=== PATIENT | female | born 1995 | race Caucasian/White ===

== ENCOUNTER 2024-06-13 12:57 | Outpatient (AMB) | payer OTHER, SELFPAY ==
--- NOTE | 2024-06-13 13:06 | A.OFFVIS_ITS ---
Vital Signs 06/13/24 13:07 Height 5 ft 3 in Weight 138 lb 3.677 oz BMI 24.5 BP 100/82 Blood Pressure Location Lt brachial Position Sitting Pulse 98 Pulse Source Pulse Oximeter Intake Visit Reasons: Lupus///RECORDS RECEIVED Intake Note: Patient present today for Lupus. Installation And Repair Technician Required: No Accompanied by: Self / Same As Patient Allergies No Known Allergies Allergy (Verified 06/13/24 13:11) HPI Comments Details: acute back pain after going to the [employer] No recent flares No joint swelling or pain. Sometimes has morning stiffness but it is minimal. No new rash, oral ulcers, genital ulcers, raynaud's syndrome, urinary symptoms, fevers or recent infections. Last benlysta infusion May 21. Due . PFSH Family History (Updated 06/13/24 @ 13:14 by JODY Sher) Mother No problems noted. Father Asthma Social History (Updated 06/13/24 @ 13:14 by JODY Sher) Alcohol intake: current Alcohol intake frequency: holidays/special occasions only Patient Tobacco Use Status: Never used Tobacco Review of Systems Const All systems reviewed & are unremarkable except as noted in HPI and below Physical Exam Vital Signs: Last Vital Signs Pulse 98 06/13/24 13:07 BP 100/82 06/13/24 13:07 BMI result Body Mass Index 24.5 Const General: healthy appearing and comfortable Resp Auscultation: clear to auscultation bilaterally Cardio Rate: regular rate Rhythm: regular rhythm Heart sounds: S1 normal heart sound present and S2 normal heart sound present Skin General skin exam: no rashes or lesions noted Extrem Other: No tender joints or synovitis. Normal ROM of all joints. Assessment & Plan Assessment & Plan (1) Systemic lupus erythematosus: Comment: Controlled on current regimen. Code(s): M32.9 - Systemic lupus erythematosus, unspecified Category: Medical Plan: Need to schedule Benlysta infusion Jun 18. Continue HCQ 400mg qd Continue MTX 20mg once weekly Obtain labs for disease and drug monitoring from last month. She will need labs in 2 months 1 week prior to requiring refill. Labs ordered. After labs are reviewed ok to send 3 month supply of HCQ and MTX. Requesting last eye exam for HCQ surveillance with OCT and VF testing. (2) Other care home (current) drug therapy: Code(s): Z79.899 - Other care home (current) drug therapy Category: Medical Plan: See above. Orders: Orders Alanine Aminotransferase 2 Months M32.9 - Systemic lupus erythematosus, unspecified Anti DNA DS Antibody 2 Months M32.9 - Systemic lupus erythematosus, unspecified Aspartate Amino Transferase 2 Months M32.9 - Systemic lupus erythematosus, unspecified C Reactive Protein 2 Months M32.9 - Systemic lupus erythematosus, unspecified Complement C3 2 Months M32.9 - Systemic lupus erythematosus, unspecified Erythrocyte Sedimentation Rate 2 Months M32.9 - Systemic lupus erythematosus, unspecified Protein Creatinine Ratio, Ur 2 Months M32.9 - Systemic lupus erythematosus, unspecified Complement C4 2 Months M32.9 - Systemic lupus erythematosus, unspecified Complete Blood Count Auto Diff 2 Months M32.9 - Systemic lupus erythematosus, unspecified Creatinine 2 Months M32.9 - Systemic lupus erythematosus, unspecified UA w Microscopic 2 Months M32.9 - Systemic lupus erythematosus, unspecified Medications: New belimumab (Benlysta) administer over 60 mins 627 mg IV Q4W M32.9 - Systemic lupus erythematosus, unspecified Coding Level of Care Code Est Pt Level 4 (41769) Complex EM visit Add On G2211 Diagnoses Systemic lupus erythematosus M32.9 Other termite control technician (current) drug therapy Z79.899
[2024-06-13 13:07] VITALS: BP 100/82; PULSE 98; BMI 24.5
== END 2024-06-13 13:55 | disposition home or self-care (01) ==
PROVIDERS: Visit Provider Internal Medicine Rheumatology
DX: M32.9 Systemic lupus erythematosus, unspecified (principal); Z79.899 Other long term (current) drug therapy
CPT/HCPCS: 99214

== ENCOUNTER → 2024-06-13 12:57 | Outpatient (BNVA) | payer OTHER, SELFPAY | PROVIDERS: Visit Provider Internal Medicine Rheumatology ==

== ENCOUNTER 2024-09-13 09:16 | Outpatient (REF) | payer OTHER, SELFPAY ==
--- OUTSIDE RECORDS SUMMARY | 2024-09-13 10:50 | XMS_ITS | Clinical Summary ---
Author Organization [facility] Address [address] [place] [address] Phone Care Team Providers Care Sheriff Name Role Phone Gurdeep Martinez MD Primary Care Provider + [phone] Allergies Active Allergy Reactions Criticality Noted Date [...] History of SARS-CoV-2 08/12/2020 Overview (03/03/2022): 07/28/21 [facility] Bilateral plantar wart 04/15/2020 Verruca vulgaris [...] patient's age to complete this topic Insurance [facility] Care Teams Sheriff Relationship Specialty Start Date End Date Gurdeep Martinez MD PCP - General 08/11/20
[2024-09-13 17:36] LABS: MANUAL DIFF FLAG NO
[2024-09-13 17:42] LABS: Basophils Percent Auto 0.2 % (0-2); Eosinophils Percent Auto 0.3 % (0-4); Hematocrit 42.7 % (37.0-47.0); Hemoglobin 13.8 g/dl (12.0-16.0); Imm Gran Abs Auto 0.02 X10*3/uL (0.00-0.03); Imm Gran Pct Auto 0.3 % (0.0-0.4); Lymphocytes Absolute Auto 1.5 X10*3/uL (1.2-4.9); Mean Corpuscular HGB Conc 32.3 g/dl (31.0-35.0); Mean Corpuscular Hemoglobin 28.2 pg (27.0-33.0); Mean Corpuscular Volume 87.3 fL (80.0-98.0); Mean Platelet Volume 11.6 fL (9.4-12.3); Monocytes Absolute Auto 0.5 X10*3/uL (0.1-1.2); Monocytes Percent Auto 7.4 % (2-11); Neutrophils Absolute Auto 4.2 x10*3/uL (2.0-8.3); Neutrophils Percent Auto 67.8 % (45-73); Platelet Count 333 X10*3/uL (160-400); Red Blood Count 4.89 X10*6/uL (4.20-5.50); Red Cell Distribution Width 14.6 % (11.0-16.0); White Blood Count 6.2 X10*3/uL (4.8-10.8)
[2024-09-13 18:01] LABS: Creatinine Urine 245.08 mg/dL; Protein/Creatinine Ratio, Ur 0.51 (<0.2); Total Protein Urine Random 125 mg/dL (<12)
[2024-09-13 18:02] LABS: Alanine Aminotransferase 15 U/L (0-31); Aspartate Amino Transferase 30 U/L (5-31); C Reactive Protein 0.39 mg/dL (< or = 0.50); Estimated Glomerular Filt Rate > 60
[2024-09-13 18:18] LABS: TSH reflex Free T4 0.44 uIU/mL (0.32-4.0)
[2024-09-13 18:26] LABS: Erythrocyte Sedimentation Rate 7 MM/HR (0-20)
[2024-09-14 12:29] LABS: Complement C3 89 mg/dL (83-193)
[2024-09-14 20:28] LABS: Anti DNA DS Antibody 25 IU/mL
== END 2024-09-13 09:17 | disposition home or self-care (01) ==
LOC: HO.HKASLDS 09:16
PROVIDERS: PCP Internal Medicine; Visit Provider Internal Medicine Rheumatology
DX: M32.9 Systemic lupus erythematosus, unspecified (principal); Z79.60 Long term (current) use of unspecified immunomodulators and immunosuppressants; Z79.899 Other long term (current) drug therapy; R39.15 Urgency of urination; R68.89 Other general symptoms and signs
CPT/HCPCS: 36415; 82565; 82570; 84156; 84443; 84450; 84460; 85025; 85652; 86140; 86160; 86225; 87086

== ENCOUNTER 2024-09-13 09:16 | Outpatient (AMB) | payer OTHER, SELFPAY ==
[2024-09-13 09:28] VITALS: BP 104/72; PULSE 99; O2SAT 97; BMI 24.5
--- NOTE | 2024-09-13 09:28 | MHC.OFFVIS ---
Vital Signs 09/13/24 09:28 Height 5 ft 3 in Weight 138 lb 2 oz BMI 24.5 BP 104/72 Blood Pressure Location Lt brachial Position Sitting Pulse 99 Pulse Source Pulse Oximeter Pulse Oximetry (%) 97 Oxygen Delivery Method Room Air Intake Visit Reasons: lupus Intake Note: Patient presents follow up lupus. states nails have started changing color. Allergies No Known Allergies Allergy (Verified 09/13/24 09:31) HPI HPI lupus: Details: She had bilateral lateral hip pain radiating to back after [place] the mall 1 hour. She had nocturnal pain. Lasted a day. She denies fevers, rash, joint swelling, joint pain, dyspnea, pleurisy, Raynaud's syndrome and cough. Since last June she has been experiencing urinary urgency and increased frequency. She has been experiencing cold intolerance at home. She has a set her temperature in her home to 80 degrees F. [facility] Family History Mother No problems noted. Father Asthma Social History Alcohol intake: current Alcohol intake frequency: holidays/special occasions only Patient Tobacco Use Status: Never used Tobacco Review of Systems Const All systems reviewed & are unremarkable except as noted in HPI and below Physical Exam Vital Signs: Last Vital Signs Pulse 99 09/13/24 09:28 BP 104/72 09/13/24 09:28 Pulse Ox 97 09/13/24 09:28 Oxygen Delivery Method Room Air 09/13/24 09:28 BMI result Body Mass Index 24.5 Const Other: General: Comfortable CVS: RRR Respiratory: clear to auscultation bilaterally. Good respiratory effort Skin: No lesions seen MSK: No tenderness of any joints. No synovitis. Good range of motion of upper extremities and lower extremities. Trochanteric bursa tenderness was not found. No groin tenderness on palpation. Assessment & Plan Assessment & Plan (1) Systemic lupus erythematosus: Comment: She is on clinical remission on current regimen. Labs from 05/2024 reviewed, which reveal chronic low C4, elevation in double-stranded DNA 25 and mild elevation in CRP. She has history of lupus nephritis class 4 (2016), subacute cutaneous lupus, and inflammatory arthritis with positive double-stranded DNA, low C4, positive SSA antibody, anti histone antibody, and beta 2 glycoprotein IgG 29. She was on mycophenolate mofetil, hydroxychloroquine and prednisone in 2016. Tacrolimus added 2019 by Nephrology. She received rituximab 2017 or 2018. SC belimumab 03/2020 changed to monthly infusions 05/2020. Mycophenolate mofetil change to methotrexate 08/20/2022 due to uncontrolled inflammatory arthritis with benefit. Code(s): M32.9 - Systemic lupus erythematosus, unspecified Category: Medical Plan: Continue Benlysta infusion every 4 weeks Continue HCQ 400mg qd. On her last eye exam from 10/19/2023 [facility] she had clinical exam with RPE stippling without evidence of bull's-eye maculopathy. OCT macula 10/11/2023 without loss of episodes zone. She requires repeat evaluation with retinal specialist Dr. Blakely. Continue MTX 20mg once weekly Continue folic acid 1 mg daily Labs for drug monitoring on high-risk medication due every 3 months. Ordered this visit (2) Hip pain, bilateral: Comment: She experienced a recurrent episode of bilateral lateral hip pain radiating to her back. Unremarkable exam. I suspect she may had pain from trochanteric bursitis, which self-resolved. Since she had recurrent episode, I recommended conservative management with physical therapy for hip and back strengthening. Code(s): M25.551 - Pain in right hip; M25.552 - Pain in left hip Category: Medical Plan: PT ordered for hip and back strengthening Continue home exercise routine with yoga Return to clinic in 3 months (3) Cold intolerance: Comment: I will further workup for thyroid disease with TSH Code(s): R68.89 - Other general symptoms and signs Category: Medical Plan: TSH ordered (4) Urinary urgency: Comment: She has had chronic urinary urgency with increased frequency since 06/2024. I will rule out UTI. If she does not have a UTI, I recommended that she follow up with Gynecology who she will be seeing next week for further evaluation/consultation with urogynecologist ?Interstitial cystitis versus overactive bladder Code(s): R39.15 - Urgency of urination Category: Medical Plan: UA and urine culture ordered (5) Other group home (current) drug therapy: Code(s): Z79.899 - Other terminal press operator (current) drug therapy Category: Medical Plan: See above. Orders: Orders Aspartate Amino Transferase Today Z79.60 - group home (current) use of unspecified immunomodulators and immunosuppressants Creatinine Today Z79.60 - intermodal truck driver (current) use of unspecified immunomodulators and immunosuppressants Erythrocyte Sedimentation Rate Today M32.9 - Systemic lupus erythematosus, unspecified Complement C4 Today M32.9 - Systemic lupus erythematosus, unspecified Anti DNA DS Antibody Today M32.9 - Systemic lupus erythematosus, unspecified PT Evaluation and Treatment Today M25.551 - Pain in right hip, M25.552 - Pain in left hip Urine Culture Today R39.15 - Urgency of urination Protein Creatinine Ratio, Ur Today M32.9 - Systemic lupus erythematosus, unspecified, Z79.899 - Other group home (current) drug therapy Alanine Aminotransferase Today Z79.60 - group home (current) use of unspecified immunomodulators and immunosuppressants Complete Blood Count Auto Diff Today Z79.60 - group home (current) use of unspecified immunomodulators and immunosuppressants C Reactive Protein Today M32.9 - Systemic lupus erythematosus, unspecified Complement C3 Today M32.9 - Systemic lupus erythematosus, unspecified TSH reflex Free T4 Today R68.89 - Other general symptoms and signs Coding Level of Care Code Est Pt Level 4 (29757) Complex EM visit Add On G2211 Diagnoses Systemic lupus erythematosus M32.9 Hip pain, bilateral M25.551; M25.552 Cold intolerance R68.89 Urinary urgency R39.15 Other group home (current) drug therapy Z79.899
--- OUTSIDE RECORDS SUMMARY | 2024-09-13 09:42 | XMS_ITS | Clinical Summary ---
Author Organization [facility] Address [address] [place] [address] Phone Care Team Providers Care Piping Designer Name Role Phone Gurdeep Martinez MD Primary Care Provider + [phone] Allergies Active Allergy Reactions Criticality Noted Date Comments Rituximab 04/22/2021 syncope Medications Calcium Carbonate-Vitam in D3 600-400 MG-UNIT tablet Take by mouth A ctive Belimumab (Benlysta) 200 MG/ML solution auto-injector Benlysta 200 mg/mL subcutaneous auto-injector Active desonide (DESOWEN) 0.05 % ointment desonide 0.05 % topical ointment Active hydroxychloroqu ine (PLAQUENIL) 200 MG tablet Take two tabs bid 1 Active mycophenolate (CELLCEPT) 500 MG tablet 3 tabs BID 1 Active predniSONE 5 MG tablet 1 tab qd Active medroxyPROGESTE Chaparro (DEPO-PROVERA) 150 MG/ML injection 1 Active Active Problems Problem Noted Date Diagnosed Date Blood in urine 08/03/2021 Persistent proteinuria 04/21/2021 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 COVID-19 08/12/2020 History of SARS-CoV-2 08/12/2020 Overview (03/03/2022): 07/28/21 [facility] Bilateral plantar wart 04/15/2020 Verruca vulgaris 04/15/2020 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 Essential hypertension 03/14/2020 Fibromyalgia 03/14/2020 Systemic lupus erythematosus 03/14/2020 Verruca plantaris 02/18/2020 Anemia 05/11/2019 Hyperlipidemia 03/20/2019 Acne 05/31/2012 Immunizations Name Administration Dates Next Due DTP 01/31/1996,1995,1995 DTaP 07/13/2000,02/08/1997 DTaP / HiB / IPV 02/08/1997, 6,1995, HPV, Quadrivalent 10/19/2007,05/25/2007,03/17/20 07 Hep B, Adolescent or Pediatric 05/03/1996,1995,1995 IPV 09/13/1999 Influenza Split High Dose Pr eservative Free IM 04/19/2018,07/12/2014 Meningococcal MCV4P 06/06/2013,11/30/2007 Pneumococcal Conjugate 13-Valent 03/15/2019 Tdap 10/17/2017,11/10/2006 Varicella 05/13/2010,02/08/1997 Family History Medical History Relation Comments Kidney disease Mother grand mother Relation Status Comments Father Alive Mother Alive Social History Tobacco Use Types Packs/Day Years Used Date Smoking Tobacco: Never Smokeless Tobacco: Never Alcohol Use Standard Drinks/Week Comments Yes 0 (1 standard drink = 0.6 oz pure alcohol) Alcoholic Drinks/day: Occasional social drink Comments Unknown Sex and Gender Information Value Date Recorded Sex Assigned at Not on file Legal Sex Female 5:09 PM EST Gender Identity Not on file Sexual Orientation Not on file Last Filed Vital Signs Vital Sign Reading Time Taken Comments Blood Pressure 98/60 08/03/2021 4:23 PM EST Pulse 103 08/03/2021 4:23 PM EST Temperature - - Respiratory Rate - - Oxygen Saturation 98% 08/03/2021 4:23 PM EST Inhaled Oxygen Concentration - - Weight 57.2 kg (126 lb 3.2 oz) 08/03/2021 4:23 P M EST Height 160 cm (5' 3 ) 08/03/2021 4:23 PM EST Body Mass Index 22.36 08/03/2021 4:23 PM EST Plan of Treatment Health Maintenance Due Date Last Done Comments Influenza Vaccine (#1) 2024 8, 07/12/2014 Hepatitis B Vaccine Completed 05/03/1996, 1995, 1995 Pneumococcal Vaccine: Pediatrics (0 to 5 Years) and At-Risk Patients (6 to 64 Years) Aged Out 03/15/2019 No longer eligible b ased on patient's age to complete this topic Insurance [facility] Care Teams Piping Designer Relationship Specialty Start Date End Date Gurdeep Martinez MD PCP - General 08/11/20
== END 2024-09-13 10:05 | disposition home or self-care (01) ==
PROVIDERS: PCP Internal Medicine; Visit Provider Internal Medicine Rheumatology
DX: M32.9 Systemic lupus erythematosus, unspecified (principal); M25.551 Pain in right hip; M25.552 Pain in left hip; R68.89 Other general symptoms and signs; R39.15 Urgency of urination; Z79.899 Other long term (current) drug therapy
CPT/HCPCS: 99214

== ENCOUNTER 2024-12-12 08:57 | Outpatient (REF) | payer OTHER, SELFPAY ==
--- OUTSIDE RECORDS SUMMARY | 2024-12-12 10:17 | XMS_ITS | Clinical Summary ---
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
[2024-12-12 18:21] LABS: Appearance Urine Clear; Color Urine Yellow; Glucose Urine UA Negative (Negative); Leukocyte Esterase Urine Trace (Negative); Nitrite Urine Negative (Negative); UMIC TRIGGER UA YES; Urine Blood Negative (Negative); Urine Ketones Negative (Negative); Urine Protein 100 (2+) mg/dL (Neg-Trace)
[2024-12-12 18:27] LABS: Bacteria Urine Trace (None Seen); Hyaline Casts Urine 0-2 /LPF (0-2); RBC Urine 0-2 /HPF (0-2); WBC Urine 0-5 /HPF (0-5)
[2024-12-12 18:28] LABS: Baso%MD 0.3 %; Hematocrit 39.6 % (37.0-47.0); Hemoglobin 12.9 g/dl (12.0-16.0); IG%MD 0.6 %; Lymph%MD 20.3 %; Mean Corpuscular HGB Conc 32.6 g/dl (31.0-35.0); Mean Corpuscular Hemoglobin 28.3 pg (27.0-33.0); Mean Corpuscular Volume 86.8 fL (80.0-98.0); Mean Platelet Volume 11.5 fL (9.4-12.3); Mono%MD 8.5 %; Neut%MD 69.3 %; Platelet Count 387 X10*3/uL (160-400); Red Blood Count 4.56 X10*6/uL (4.20-5.50); Red Cell Distribution Width 14.6 % (11.0-16.0)
[2024-12-12 18:30] LABS: Alanine Aminotransferase 19 U/L (0-31); Aspartate Amino Transferase 42 U/L (5-31); C Reactive Protein 0.58 mg/dL (< or = 0.50); Estimated Glomerular Filt Rate > 60
[2024-12-12 18:33] LABS: WBC ABN SCTR FOR CBC 1
[2024-12-12 18:55] LABS: Creatinine Urine 187.02 mg/dL; Protein/Creatinine Ratio, Ur 0.31 (<0.2); Total Protein Urine Random 58 mg/dL (<12)
[2024-12-12 19:09] LABS: Erythrocyte Sedimentation Rate 7 MM/HR (0-20)
[2024-12-12 19:17] LABS: Basophils Percent Manual 1 % (0-2); Eosinophils Percent Manual 1 % (0-4); Lymphocytes Percent Manual 28 % (20-40); Monocytes Percent Manual 7 % (2-11); Neutrophils Percent Manual 63 % (45-73); Nucleated Red Blood Cells 1 /100WBC (0-0)
[2024-12-12 19:19] LABS: Acanthocytes 1+ (0-2) /OIF; Burr Cells 2+ (3-5) /OIF; RBC Morphology NOTED; Schistocytes 1+ (0-2) /OIF
[2024-12-12 19:20] LABS: Ovalocytes 1+ (5-14) /OIF
[2024-12-12 19:22] LABS: Band Neutrophils Percent 0 % (3-5); Basophils Abs Manual 0.1 X10*3/uL (0.0-0.2); Eosinophils Absolute Manual 0.1 X10*3/uL (0.0-0.4); Lymphocytes Absolute Manual 1.9 X10*3/uL (1.2-4.9); Monocytes Absolute Manual 0.5 X10*3/uL (0.1-1.2); Neutrophils Absolute Manual 4.3 X10*3/uL (2.0-8.3); Platelet Estimate NORMAL (NORMAL); Platelet Morphology Comment NORMAL; White Blood Count 6.9 X10*3/uL (4.8-10.8)
[2024-12-13 07:59] LABS: HBS Num1 1.71 mIU/mL (0-7.99); HBsAGNum1 0.36 S/CO (0.00-0.99); Hepatitis B Core Antibody Nonreactive (Nonreactive); Hepatitis B Surface Antigen Negative (Negative); ~HepC Num1 0.24 S/CO (0.00-0.79); ~Hepatitis B Surface Antibody NONREACTIVE (Nonreactive); ~Hepatitis C Antibody Nonreactive (Nonreactive)
[2024-12-14 22:09] LABS: Anti DNA DS Antibody 33 IU/mL
[2024-12-17 10:49] LABS: Complement C3 83 mg/dL (83-193)
== END 2024-12-12 08:58 | disposition home or self-care (01) ==
LOC: HO.HKASLDS 08:57
PROVIDERS: PCP Internal Medicine; Visit Provider Internal Medicine Rheumatology
DX: M32.9 Systemic lupus erythematosus, unspecified (principal); Z79.899 Other long term (current) drug therapy
CPT/HCPCS: 36415; 81001; 82565; 82570; 84156; 84450; 84460; 85007; 85027; 85652; 86140; 86160; 86225; 86704; 86706; 86803; 87340

== ENCOUNTER 2024-12-12 08:57 | Outpatient (AMB) | payer OTHER, SELFPAY ==
--- NOTE | 2024-12-12 09:03 | MHC.OFFVIS ---
Vital Signs 12/12/24 09:05 Height 5 ft 3 in Weight 136 lb 7.458 oz BMI 24.2 BP 116/80 Blood Pressure Location Lt brachial Position Sitting Pulse 97 Pulse Source Pulse Oximeter Pulse Oximetry (%) 99 Oxygen Delivery Method Room Air Intake Visit Reasons: 3mo follow up Intake Note: Patient present today for Lupus. Allergies No Known Allergies Allergy (Verified 09/13/24 09:31) HPI HPI 3mo follow up: Details: She is taking MTX 5mg once weekly She had influenza type B November 18 presenting with congestion, migraine, cough. She received tamiflu. Resolved. Denies fevers, dyspnea, pleurisy +frothy urine. PFSH Family History Mother No problems noted. Father Asthma Social History Alcohol intake: current Alcohol intake frequency: holidays/special occasions only Patient Tobacco Use Status: Never used Tobacco Physical Exam Vital Signs: Last Vital Signs Pulse 97 12/12/24 09:05 BP 116/80 12/12/24 09:05 Pulse Ox 99 12/12/24 09:05 Oxygen Delivery Method Room Air 12/12/24 09:05 BMI result Body Mass Index 24.2 Const Other: General: Comfortable CVS: RRR Respiratory: clear to auscultation bilaterally. Good respiratory effort Skin: No lesions seen MSK: No tenderness of any joints. No synovitis. She has volar subluxation of 1st MCPs right worse than left. Normal range of motion of upper extremities and lower extremities. Trochanteric bursa tenderness was not found. No groin tenderness on palpation. Bilateral hallux valgus deformity present. Assessment & Plan Assessment & Plan (1) Systemic lupus erythematosus: Comment: She has had intermittent joint pain affecting right 1st MCP. Methotrexate 5 mg once weekly instead of 20 mg previously prescribed. Labs from 09/2024 reviewed, which reveal stable chronic low C4, elevation in double-stranded DNA 25. She has mild proteinuria that I am monitoring. She has history of lupus nephritis class 4 (2016), subacute cutaneous lupus, and inflammatory arthritis with positive double-stranded DNA, low C4, positive SSA antibody, anti histone antibody, and beta 2 glycoprotein IgG 29. She was on mycophenolate mofetil, hydroxychloroquine and prednisone in 2015. Tacrolimus added 2018 by Nephrology. She received rituximab 2017 or 2018. SC belimumab 03/2020 changed to monthly infusions 05/2020. Mycophenolate mofetil change to methotrexate 08/20/2022 due to uncontrolled inflammatory arthritis with benefit. Code(s): M32.9 - Systemic lupus erythematosus, unspecified Category: Medical Plan: Continue Benlysta infusion every 4 weeks Continue HCQ 400mg qd. On her last eye exam from 10/19/2023 [facility] she had clinical exam with RPE stippling without evidence of bull's-eye maculopathy. OCT macula 10/11/2023 without loss of episodes zone. OCT 10/2024 ok. Patient had visual field test during one of her visits but it is not reported in the note - requesting clarification from Dr. Neumann's office. Increase MTX 15 mg once weekly Continue folic acid 2 mg daily Labs for disease and drug monitoring on high-risk medication due today (2) Other prison (current) drug therapy: Code(s): Z79.899 - Other bed bug exterminator (current) drug therapy Category: Medical Plan: See above. (3) Hip pain, bilateral: Comment: She experienced a recurrent episode of bilateral lateral hip pain radiating to her back. Unremarkable exam. I suspect she may had pain from trochanteric bursitis, which self-resolved. Since she had recurrent episode, I recommended conservative management with physical therapy for hip and back strengthening. Code(s): M25.551 - Pain in right hip; M25.552 - Pain in left hip Category: Medical Plan: PT ordered for hip and back strengthening Continue home exercise routine with yoga Return to clinic in 3 months (4) Cold intolerance: Comment: I will further workup for thyroid disease with TSH Code(s): R68.89 - Other general symptoms and signs Category: Medical Plan: TSH ordered (5) Urinary urgency: Comment: She has had chronic urinary urgency with increased frequency since 06/2024. I will rule out UTI. If she does not have a UTI, I recommended that she follow up with Gynecology who she will be seeing next week for further evaluation/consultation with urogynecologist ?Interstitial cystitis versus overactive bladder Code(s): R39.15 - Urgency of urination Category: Medical Plan: UA and urine culture ordered Orders: Orders Alanine Aminotransferase Today M32.9 - Systemic lupus erythematosus, unspecified C Reactive Protein Today M32.9 - Systemic lupus erythematosus, unspecified Erythrocyte Sedimentation Rate Today M32.9 - Systemic lupus erythematosus, unspecified Protein Creatinine Ratio, Ur Today M32.9 - Systemic lupus erythematosus, unspecified UA and rflx microscopic Today M32.9 - Systemic lupus erythematosus, unspecified Anti DNA DS Antibody Today M32.9 - Systemic lupus erythematosus, unspecified Hepatitis B,C Profile Today M32.9 - Systemic lupus erythematosus, unspecified, Z79.899 - Other bed bug exterminator (current) drug therapy Complete Blood Count Man Dif Today M32.9 - Systemic lupus erythematosus, unspecified Aspartate Amino Transferase Today M32.9 - Systemic lupus erythematosus, unspecified Creatinine Today M32.9 - Systemic lupus erythematosus, unspecified Complement C4 Today M32.9 - Systemic lupus erythematosus, unspecified Complement C3 Today M32.9 - Systemic lupus erythematosus, unspecified Medications: Changed From folic acid Take 1 tablet daily 1 mg PO DAILY 90 tabs 3RF To folic acid Take 1 tablet daily 2 mg (2 x 1 mg) PO DAILY 180 tabs 3RF From hydroxychloroquine 200 mg PO ONCE To hydroxychloroquine 200 mg PO ONCE 90 days 90 tabs 3RF From methotrexate sodium Take 8 tablets once weekly. Labs are due before the next appointment on 12-11 (2 months). 20 mg (8 x 2.5 mg) PO QWEEK 32 tabs 1RF To methotrexate sodium Take 6 tablets once weekly. 15 mg (6 x 2.5 mg) PO QWEEK 4 weeks 24 tabs 2RF Coding Level of Care Code Est Pt Level 4 (08868) Complex EM visit Add On G2211 Diagnoses Systemic lupus erythematosus M32.9 Other bed bug exterminator (current) drug therapy Z79.899 Hip pain, bilateral M25.551; M25.552 Cold intolerance R68.89 Urinary urgency R39.15
[2024-12-12 09:05] VITALS: BP 116/80; PULSE 97; O2SAT 99; BMI 24.2
--- OUTSIDE RECORDS SUMMARY | 2024-12-12 09:25 | XMS_ITS | Clinical Summary ---
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 Essential hypertension 03/14/2020 Fibromyalgia 03/14/2020 Systemic lupus erythematosus 03/14/2020 Verruca plantaris 02/18/2020 Anemia 05/11/2019 Hyperlipidemia 03/20/2019 Acne 05/31/2012 Immunizations Immunization Administration Dates Next Due DTP 01/31/1996,1995,1995 DTaP [...] Due Date Last Done Comments Influenza Vaccine (Season Ended) 2025 04/19/2018, 07/12/2014 Hepatitis B Vaccine Completed 05/03/1996, 1995, 1995 Pneumococcal Vaccine: 50+ Years Discontinued 03/15/2019 Pneumococcal Vaccine: Peds (0 to 5 Years) and At-Risk Patients (6 to 49 Years) Aged Out 03/15/2019 No longer eligi ble based on patient's age to complete this topic Insurance [facility] Care Teams Paleobotanist Relationship Specialty Start Date End Date Gurdeep Martinez MD PCP - General 08/11/20
--- OUTSIDE RECORDS SUMMARY | 2024-12-12 09:25 | XMS_ITS ---
[facility] Name [facility] Organization Unknown Care Team Organization Name Specialty Phone Email Start Date End Da te [facility] Primary Care 03/13/2020 03/13/2020
== END 2024-12-12 09:39 | disposition home or self-care (01) ==
LOC: HO.RHES 08:57
PROVIDERS: PCP Internal Medicine; Visit Provider Internal Medicine Rheumatology
DX: M32.9 Systemic lupus erythematosus, unspecified (principal); Z79.899 Other long term (current) drug therapy; M25.551 Pain in right hip; M25.552 Pain in left hip; R68.89 Other general symptoms and signs; R39.15 Urgency of urination
CPT/HCPCS: 99214

== ENCOUNTER 2025-03-12 08:21 | Outpatient (AMB) | payer OTHER, SELFPAY ==
--- NOTE | 2025-03-12 08:24 | MHC.OFFVIS ---
Vital Signs 03/12/25 08:25 Height 5 ft 3 in Weight 135 lb 12.876 oz BMI 24.1 BP 110/80 Blood Pressure Location Rt brachial Position Sitting Pulse 103 H Pulse Source Pulse Oximeter Pulse Oximetry (%) 99 Oxygen Delivery Method Room Air Intake Visit Reasons: 3 Months Intake Note: Patient presents today for Systemic lupus erythematosus. Accompanied by: Self / Same As Patient Allergies No Known Allergies Allergy (Verified 09/13/24 09:31) HPI HPI 3 Months: Details: Hair loss is not worse. Joint pain is persistent. Back pain after six flags. No joint swelling. MS 30-45 min. No urinary symptoms, fevers, dyspnea, pleurisy. She is getting red dots on thighs. Self resolves. [facility] Family History Mother No problems noted. Father Asthma Social History Alcohol intake: current Alcohol intake frequency: holidays/special occasions only Patient Tobacco Use Status: Never used Tobacco Physical Exam Vital Signs: Last Vital Signs Pulse 103 H 03/12/25 08:25 BP 110/80 03/12/25 08:25 Pulse Ox 99 03/12/25 08:25 Oxygen Delivery Method Room Air 03/12/25 08:25 BMI result Body Mass Index 24.1 Const Other: General: Comfortable CVS: RRR Respiratory: clear to auscultation bilaterally. Good respiratory effort Skin: No lesions seen MSK: No tenderness of any joints. No synovitis. She has volar subluxation of 1st MCPs right worse than left. Normal range of motion of upper extremities and lower extremities. Trochanteric bursa tenderness was not found. Bilateral hallux valgus deformity present. No spinous process tenderness or paraspinal muscle tenderness. Good lumbar flexion. Assessment & Plan Assessment & Plan (1) Systemic lupus erythematosus: Comment: Improve joint pain and higher dose of methotrexate. Labs from 11/2024 reviewed, which reveal downtrending low C4, elevation in double-stranded DNA. Proteinuria has improved. I will continue to monitor serological activity. Bumps on thighs are likely related to sun exposure. She has history of lupus nephritis class 4 (2016), subacute cutaneous lupus, and inflammatory arthritis with positive double-stranded DNA, low C4, positive SSA antibody, anti histone antibody, and beta 2 glycoprotein IgG 29. She was on mycophenolate mofetil, hydroxychloroquine and prednisone in 2016. Tacrolimus added 2019 by Nephrology. She received rituximab 2017 or 2018. SC belimumab 03/2020 changed to monthly infusions 05/2020. Mycophenolate mofetil change to methotrexate 08/20/2022 due to uncontrolled inflammatory arthritis with benefit. Code(s): M32.9 - Systemic lupus erythematosus, unspecified Category: Medical Plan: Continue Benlysta infusion every 4 weeks Decrease hydroxychloroquine 300 mg daily weight based. On her last eye exam from 10/19/2023 [facility] she had clinical exam with RPE stippling without evidence of bull's-eye maculopathy. OCT macula 10/11/2023 without loss of episodes zone. OCT 10/2024 ok. VF 10/2024. She has repeat testing scheduled for 2025. Continue MTX 15 mg once weekly Continue folic acid 2 mg daily Labs for disease and drug monitoring on high-risk medication due today (2) Chronic back pain: Comment: Intermittent pain related to activity. Unremarkable exam. We discussed conservative management. Code(s): M54.9 - Dorsalgia, unspecified; G89.29 - Other chronic pain Category: Medical Plan: PT ordered for back strengthening (3) Other correction (current) drug therapy: Code(s): Z79.899 - Other correction (current) drug therapy Category: Medical Plan: See above. Orders: Orders Erythrocyte Sedimentation Rate Today M32.9 - Systemic lupus erythematosus, unspecified Alanine Aminotransferase Today M32.9 - Systemic lupus erythematosus, unspecified Complement C3 Today M32.9 - Systemic lupus erythematosus, unspecified Aspartate Amino Transferase Today M32.9 - Systemic lupus erythematosus, unspecified Complement C4 Today M32.9 - Systemic lupus erythematosus, unspecified Creatinine Today M32.9 - Systemic lupus erythematosus, unspecified UA ClnCatch+Micro w/rflx Cult Today M32.9 - Systemic lupus erythematosus, unspecified C Reactive Protein Today M32.9 - Systemic lupus erythematosus, unspecified PT Evaluation and Treatment Today G89.29 - Other chronic pain, M54.9 - Dorsalgia, unspecified Complete Blood Count Auto Diff Today M32.9 - Systemic lupus erythematosus, unspecified Protein Creatinine Ratio, Ur Today M32.9 - Systemic lupus erythematosus, unspecified Anti DNA DS Antibody Today M32.9 - Systemic lupus erythematosus, unspecified Medications: Changed From hydroxychloroquine 200 mg PO ONCE 90 days 90 tabs 3RF To hydroxychloroquine 300 mg (1.5 x 200 mg) PO ONCE 135 tabs 3RF 90 days Coding Level of Care Code Est Pt Level 4 (76011) Complex EM visit Add On G2211 Diagnoses Systemic lupus erythematosus M32.9 Chronic back pain M54.9; G89.29 Other buttermaker helper (current) drug therapy Z79.899
[2025-03-12 08:25] VITALS: BP 110/80; PULSE 103; O2SAT 99; BMI 24.1
--- OUTSIDE RECORDS SUMMARY | 2025-03-12 08:36 | XMS_ITS ---
[facility] Name [facility] Organization Unknown Care Team Organization Name Specialty Phone Email Start Date End Da te [facility] 03/13/2020 03/13/2020
--- OUTSIDE RECORDS SUMMARY | 2025-03-12 08:36 | XMS_ITS | Clinical Summary ---
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 Essential hypertension 03/14/2020 Fibromyalgia 03/14/2020 [...] Date Last Done Comments Influenza Vaccine (#1) 2025 8, 07/12/2014 Hepatitis B Vaccine Completed 05/03/1996, 1995, 1995 Pneumococcal Vaccine: 50+ Years Discontinued 03/15/2019 Pneumococcal Vaccine: Peds (0 to 5 Years) and At-Risk Patients (6 to 49 Years) Aged Out 03/15/2019 No longer eligi ble based on patient's age to complete this topic Insurance [facility] Care Teams Programmer Numerical Control Relationship Specialty Start Date End Date Gurdeep Martinez MD PCP - General 08/11/20
== END 2025-03-12 09:01 | disposition home or self-care (01) ==
LOC: HO.RHES 08:22
PROVIDERS: PCP Internal Medicine; Visit Provider Internal Medicine Rheumatology
DX: M32.9 Systemic lupus erythematosus, unspecified (principal); M54.9 Dorsalgia, unspecified; G89.29 Other chronic pain; Z79.899 Other long term (current) drug therapy
CPT/HCPCS: 99214

== ENCOUNTER 2025-03-25 10:17 | Outpatient (REF) | payer OTHER, SELFPAY ==
--- OUTSIDE RECORDS SUMMARY | 2025-03-25 11:25 | XMS_ITS | Clinical Summary ---
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
[2025-03-25 11:33] LABS: Hematocrit 43.6 % (37.0-47.0); Hemoglobin 14.7 g/dl (12.0-16.0); Imm Gran Abs Auto 0.03 X10*3/uL (0.00-0.03); Imm Gran Pct Auto 0.4 % (0.0-0.4); Lymphocytes Absolute Auto 0.4 X10*3/uL (1.2-4.9); MANUAL DIFF FLAG SCAN; Mean Corpuscular HGB Conc 33.7 g/dl (31.0-35.0); Mean Corpuscular Hemoglobin 28.5 pg (27.0-33.0); Mean Corpuscular Volume 84.5 fL (80.0-98.0); NRBC Abs Auto 0.000 X10*3/uL (0.0-0.012); NRBC Pct Auto 0.0 /100WBC (0.0-0.2); Platelet Count 305 X10*3/uL (160-400); Red Blood Count 5.16 X10*6/uL (4.20-5.50); SCAN SMEAR FLAG 1; White Blood Count 7.6 X10*3/uL (4.8-10.8)
[2025-03-25 12:02] LABS: Appearance Urine Clear; Glucose Urine UA Negative (Negative); PH 6.0 (5.0-9.0); Specific Gravity - Urine >= 1.030 (1.005-1.025); UMIC TRIGGER UA YES; UMIC TRIGGER UACC YES
[2025-03-25 12:13] LABS: Alanine Aminotransferase 19 U/L (0-31); Aspartate Amino Transferase 35 U/L (5-31); Estimated Glomerular Filt Rate > 60
[2025-03-25 12:38] LABS: Protein/Creatinine Ratio, Ur 0.40 (<0.2); Total Protein Urine Random 163 mg/dL (<12)
== END 2025-03-25 10:18 | disposition home or self-care (01) ==
LOC: HO.LAB 10:17
PROVIDERS: PCP Internal Medicine; Visit Provider Internal Medicine Rheumatology
DX: M32.9 Systemic lupus erythematosus, unspecified (principal); Z79.60 Long term (current) use of unspecified immunomodulators and immunosuppressants
CPT/HCPCS: 36415; 81001; 82565; 82570; 84156; 84450; 84460; 85025; 85652; 86140; 86160; 86225

== ENCOUNTER 2025-05-06 12:54 | Outpatient (RCR) | payer OTHER, SELFPAY ==
--- NOTE | 2025-04-08 15:26 | MHC.PT.EP ---
[facility] [place] Office [place] Office [place] Office [address] Anne Paz [address] [phone] F: [phone] F: [phone] F: [phone] F: [phone] Physical Therapy Plan of Care Date of Evaluation: 04/08/25 Date of Surgery: Diagnosis: Bilateral hip pain/chronic back pain; M54.9 - Dorsalgia, unspecified; G89.29 - Other chronic pain Category: Medical Plan: PT ordered for back strengthening from Dr. 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 Vences, Bilateral hip pain/chronic back pain; M54.9 - Dorsalgia, unspecified; G89.29 - Other chronic pain Category: Medical Plan: PT ordered for back strengthening 03/12/25 . Upon screen, Lianexis exhibits (+) weakness of L>R hip ext/abd, weakness proximal L knee and will benefit from strength program for all these areas in addition to lumbar stabilization. In standing she has hyperext and notes pain in lateral aspect of her L knee secondary to varus alignment. She would benefit from attending skilled PT services at a frequency of 2x/week x 4 weeks to address a lumbar/hip/knee core stab program but states at this time 1x/week is more feasible with her work schedule. She was educated re: goals/findings of screening at eval post assessment. She receives her IV infusions every 4 weeks (due next Tuesday, 04/15). She has good understanding of goals identified in PT. At baseline she participates in David 2x/week but has goals of improving her walking/standing/pain tolerance to improve overall mobility. She has excellent rehab prognosis. At assessment she verbalized her fears of PT but was encouraged that therapy should be able to aide in her pain and improve her strength in addition to her medication changes recommendations set by her referring provider. She was issued a written HEP and educated re: STG/LTGs/POC. Frequency and Duration: The patient will be seen 2x/week x 4 weeks Short Term Goals: 1. Initiate HEP program/self-care. 2. Demonstrate strength of hip ext 4/5. (IR: 3+/5 3. Demonstrate hip abd strength 3/5 on the L hip. 4. Demonstrate carryover re: goals of self care management. Shaper Operator Goals: 1. Demonstrate bridge with sx <2/10 in L/S. 2. Strength hip abd L 5/5. 3. Strength hip ext L 5/5. 4. Demonstrate awareness to reduce stress on L knee varus/ educate re: taping strategies to help with pain. 5. I HEP with self care goals. Treatment Plan: Modalities to reduce pain, spasms and effusion. Manual therapy to restore motion and function. Therapeutic exercise to improve strength and flexibility. Neuromuscular re-education for posture and balance. Therapeutic activities to return to functional activities of daily living. Electronically signed by: Cristine Huerta PT, DPT Please sign and return to therapist. Thank you for your referral.
--- NOTE | 2025-05-24 12:57 | MHC.PT.OD ---
[facility] [place] Office [address] [facility] [phone] F: [phone] F: [phone] F: [phone] Physical Therapy Daily Note Diagnosis: Bilateral hip pain/chronic back pain; M54.9 - Dorsalgia, unspecified; G89.29 - Other chronic pain Category: Medical Plan: PT ordered for back strengthening from Dr. Vences 03/12/25 Date of Surgery: Date of Evaluation: 04/08/25 Date of Treatment: 05/06/25 Treatments to Date: Cancellations to Date: No Shows to Date: Authorized Visits: 2 Insurance End Date: Precautions/ Contraindications:SLE, L varus alignment L knee with hyperext Subjective: Notes had to cancel previous appt due to family matters. (Wanted to do every other week so cancelled last appt, has not been in since eval 04/08/25). Notes her L great toe has been sore, has purchased a support per Dr. Vences recommendation. Pain Score and Location: 4 Objective Flowsheet: Tests & Measures Exercises Seated on ScaleArc bike for active warm-up x five minutes rocking back and forth, fwd revolutions x five minutes in effort to improve knee ROM. Educated re: isometric QS, seated HS stretch x 4R x 20 sec hold, hip ER stretch for L>R x 20 sec hold x 4R each, posterior pelvic tilt in sitting and in hook-lying x 2 set 5R, hook-lying hip abduction x 2 sets 10R RTB, hook-lying bridge x 2 set 10R, hook-lying hip adduction x 2 sets 10R, hook-lying hip abd with RTB x 2 sets 10R. Discussed supportive footwear and recommendation to remove toe ring on foot that is impacted by great toe flare as she was expressing sx with wearing it. Discussed benefit in wearing a good arch support or orthotic insert, avoidance for flat shoes/ election for sneakers. HEP sheets written for home program. self care encouragement for activity, to consider pool therapy low impact, goes to [facility] for [place] 2x/week HEp sheets issued and educated for self care prior to next session Review of goals STG/LTG/POC Awareness for posture/standing/avoiding lockout position and hyperext of L knee Modalities Assessment: 05/24/25: Pt called into cancel her appt scheduled for Sunday 05/27 due to financial reasons. Pt was encouraged she can come to PT and be billed, be placed on a pause temporarily and or DC to I HEP. She was also encouraged to call the office with any questions or concerns re: her HEP. She was encouraged to discuss her status with Dr. Vences with her upcoming appt in June. PT Plan: 1x/week lumbar hip knee core stab Assess response to HEP trial bike>stepper taping prn for pain lateral joint L knee Short Term Goals: 1. Initiate HEP program/self-care. 2. Demonstrate strength of hip ext 4/5. (IR: 3+/5 3. Demonstrate hip abd strength 3/5 on the L hip. 4. Demonstrate carryover re: goals of self care management. Intermediate Goals: 1. Demonstrate bridge with sx <2/10 in L/S. 2. Strength hip abd L 5/5. 3. Strength hip ext L 5/5. 4. Demonstrate awareness to reduce stress on L knee varus/ educate re: taping strategies to help with pain. 5. I HEP with self care goals. Electronically signed by: Cristine Huerta, PT, DPT
== END 2025-06-20 12:55 | disposition home or self-care (01) ==
LOC: HO.PTS 12:54
PROVIDERS: PCP Internal Medicine; Visit Provider Internal Medicine Rheumatology
DX: M54.9 Dorsalgia, unspecified (principal); G89.29 Other chronic pain; M25.551 Pain in right hip; M25.552 Pain in left hip
CPT/HCPCS: 97110; 97161; 97535

== ENCOUNTER 2025-06-11 08:27 | Outpatient (AMB) | payer OTHER, SELFPAY ==
--- NOTE | 2025-06-11 08:30 | MHC.OFFVIS ---
Vital Signs 06/11/25 08:32 Height 5 ft 3 in Weight 140 lb 3.424 oz BMI 24.8 BP 124/90 H Blood Pressure Location Lt brachial Position Sitting Pulse 112 H Pulse Source Pulse Oximeter Pulse Oximetry (%) 98 Oxygen Delivery Method Room Air Intake Visit Reasons: 3 Months Intake Note: Patient presents today for Systemic lupus erythematosus. Accompanied by: Self / Same As Patient Allergies No Known Allergies Allergy (Verified 06/11/25 08:35) HPI HPI 3 Months: Details: She had to stop PT for back strengthening due to high co-pay. She is compliant with home exercise program. Reduced back pain. She continues to do David. No nocturnal pain after David. She has hypopigementation frontal scalp with hair loss. No fevers, rash, dyspnea, pleurisy, dysuria, hematuria +frothy urine Pain in thumb. R 1st MTP intermittent swelling. Last sick with URI before . PFSH Family History Mother No problems noted. Father Asthma Social History Alcohol intake: current Alcohol intake frequency: holidays/special occasions only Patient Tobacco Use Status: Never used Tobacco Physical Exam Vital Signs: Last Vital Signs Pulse 112 H 06/11/25 08:32 BP 124/90 H 06/11/25 08:32 Pulse Ox 98 06/11/25 08:32 Oxygen Delivery Method Room Air 06/11/25 08:32 BMI result Body Mass Index 24.8 Const Other: General: Comfortable CVS: RRR Respiratory: clear to auscultation bilaterally. Good respiratory effort Skin: No lesions seen MSK: Right 1st MTP synovitis without tenderness. She has volar subluxation of 1st MCPs right worse than left. Normal range of motion of upper extremities and lower extremities. Assessment & Plan Assessment & Plan (1) Systemic lupus erythematosus: Comment: She has intermittent right MTP pain with synovitis on exam. She also has new front scalp lesion with hyperpigmentation. She has serological activity with hypocomplementemia C4, C3 and elevated double-stranded DNA. Mild transaminitis AST. She occasionally drinks alcohol. PCP prophylaxis is indicated. After lab results are back, I will send prescription for dapsone. She has history of lupus nephritis class 4 (2016), subacute cutaneous lupus, and inflammatory arthritis with positive double-stranded DNA, low C4, positive SSA antibody, anti histone antibody, and beta 2 glycoprotein IgG 29. She was on mycophenolate mofetil, hydroxychloroquine and prednisone in 2015. Tacrolimus added 2018 by Nephrology. She received rituximab 2017 or 2018. SC belimumab 03/2020 changed to monthly infusions 05/2020. Mycophenolate mofetil change to methotrexate 08/20/2022 due to uncontrolled inflammatory arthritis with benefit. Code(s): M32.9 - Systemic lupus erythematosus, unspecified Category: Medical Plan: Continue Benlysta infusion every 4 weeks Continue hydroxychloroquine 300 mg daily weight based. On her last eye exam from 10/19/2023 [facility] she had clinical exam with RPE stippling without evidence of bull's-eye maculopathy. OCT macula 10/11/2023 without loss of episodes zone. OCT 10/2024 ok. VF 10/2024. She has repeat testing scheduled for 2025. Continue MTX 15 mg once weekly Continue folic acid 2 mg daily Avoid alcohol Log of joint symptoms Labs for disease and drug monitoring on high-risk medication due today She will be scheduled later this afternoon for right 1st MTP cortisone injection as patient needed time to mentally prepare for injection Return to clinic in 3 months for lupus follow up (2) Chronic back pain: Comment: Intermittent pain related to activity. Improved with PT. Code(s): M54.9 - Dorsalgia, unspecified; G89.29 - Other chronic pain Category: Medical Plan: Continue home exercise program Return to clinic in 3 months (3) Other shelter (current) drug therapy: Code(s): Z79.899 - Other shelter (current) drug therapy Category: Medical Plan: See above. Orders: Orders Erythrocyte Sedimentation Rate Today M32.9 - Systemic lupus erythematosus, unspecified Protein Creatinine Ratio, Ur Today M32.9 - Systemic lupus erythematosus, unspecified Alanine Aminotransferase Today M32.9 - Systemic lupus erythematosus, unspecified Complement C3 Today M32.9 - Systemic lupus erythematosus, unspecified Aspartate Amino Transferase Today M32.9 - Systemic lupus erythematosus, unspecified Creatinine Today M32.9 - Systemic lupus erythematosus, unspecified Anti DNA DS Antibody Today M32.9 - Systemic lupus erythematosus, unspecified UA ClnCatch+Micro w/rflx Cult Today M32.9 - Systemic lupus erythematosus, unspecified Complete Blood Count Auto Diff Today M32.9 - Systemic lupus erythematosus, unspecified Complement C4 Today M32.9 - Systemic lupus erythematosus, unspecified C Reactive Protein Today M32.9 - Systemic lupus erythematosus, unspecified Coding Level of Care Code Est Pt Level 4 (97389) Complex EM visit Add On G2211 Diagnoses Systemic lupus erythematosus M32.9 Chronic back pain M54.9; G89.29 Other terminal gauger (current) drug therapy Z79.899
[2025-06-11 08:32] VITALS: BP 124/90; PULSE 112; O2SAT 98; BMI 24.8
== END 2025-06-11 09:15 | disposition home or self-care (01) ==
LOC: HO.RHES 08:28
PROVIDERS: PCP Internal Medicine; Visit Provider Internal Medicine Rheumatology
DX: M32.9 Systemic lupus erythematosus, unspecified (principal); M54.9 Dorsalgia, unspecified; G89.29 Other chronic pain; Z79.899 Other long term (current) drug therapy
CPT/HCPCS: 99214

== ENCOUNTER → 2025-06-11 08:27 | Outpatient (BNVA) | payer OTHER, SELFPAY | PROVIDERS: PCP Internal Medicine; Visit Provider Internal Medicine Rheumatology | DX: M32.9 Systemic lupus erythematosus, unspecified (principal) | CPT/HCPCS: 20600; J2003; J3301 ==

== ENCOUNTER 2025-06-11 13:20 | Outpatient (AMB) | payer OTHER, SELFPAY ==
--- NOTE | 2025-06-11 13:36 | A.OFFVIS_ITS ---
Vital Signs 06/11/25 13:37 Height 5 ft 3 in Weight 140 lb BMI 24.8 Intake Visit Reasons: cortisone inj Intake Note: Patient presents for a cortisone inj. Accompanied by: Spouse Allergies No Known Allergies Allergy (Verified 06/11/25 13:37) HPI HPI cortisone inj: Details: Patient returns for right 1st MCP cortisone injection. PFSH Family History Mother No problems noted. Father Asthma Social History Alcohol intake: current Alcohol intake frequency: holidays/special occasions only Patient Tobacco Use Status: Never used Tobacco Physical Exam Vital Signs: BMI result Body Mass Index 24.8 Const Other: General: Comfortable Skin: No lesions seen MSK: Synovitis of right 1st MCP without tenderness on palpation. She has Z finger. Able to make a fist. Office Procedures AMB Joint Injection/Aspiration Joint Injection/Aspiration Details: Right 1st MCP Prep: site was prepped using aseptic technique Injected: 10 mg of, Kenalog, with 0.25 mL of and 1% plain lidocaine Procedure: Informed verbal consent was obtained. The patient tolerated the procedure well. Postprocedure protocol was discussed with patient. Coding Details: Kenalog 0.25mL Lot # [id number] [facility] [address]-4 Expiration Location: Rheumatology Administered by Dr. Donny Vences MD Lidocaine 0.25mL [facility]# [id number] [facility] [address] [address]-350-67 Expiration 12/29/26 Location: Rheumatology [place] [id number] - Small Joint Procedure code (CPT) selection complete Assessment & Plan Assessment & Plan (1) Systemic lupus erythematosus: Comment: She has intermittent right MTP pain with synovitis on exam. She also has new front scalp lesion with hyperpigmentation. She has serological activity with hypocomplementemia C4, C3 and elevated double-stranded DNA. Mild transaminitis AST. She occasionally drinks alcohol. PCP prophylaxis is indicated. After lab results are back, I will send prescription for dapsone. Patient received right 1st MCP cortisone injection this visit. She has history of lupus nephritis class 4 (2016), subacute cutaneous lupus, and inflammatory arthritis with positive double-stranded DNA, low C4, positive SSA antibody, anti histone antibody, and beta 2 glycoprotein IgG 29. She was on mycophenolate mofetil, hydroxychloroquine and prednisone in 2015. Tacrolimus added 2018 by Nephrology. She received rituximab 2017 or 2018. SC belimumab 03/2020 changed to monthly infusions 05/2020. Mycophenolate mofetil change to methotrexate 08/20/2022 due to uncontrolled inflammatory arthritis with benefit. Code(s): M32.9 - Systemic lupus erythematosus, unspecified Category: Medical Plan: Continue Benlysta infusion every 4 weeks Continue hydroxychloroquine 300 mg daily weight based. On her last eye exam from 10/19/2023 [facility] she had clinical exam with RPE stippling without evidence of bull's-eye maculopathy. OCT macula 10/11/2023 without loss of episodes zone. OCT 10/2024 ok. VF 10/2024. She has repeat testing scheduled for 2025. Continue MTX 15 mg once weekly Continue folic acid 2 mg daily Avoid alcohol Log of joint symptoms Labs for disease and drug monitoring on high-risk medication due today Patient received cortisone injection right 1st MCP this visit Return to clinic in 3 months for lupus follow up (2) Chronic back pain: Comment: Intermittent pain related to activity. Improved with PT. Code(s): M54.9 - Dorsalgia, unspecified; G89.29 - Other chronic pain Category: Medical Plan: Continue home exercise program Return to clinic in 3 months (3) Other watermelon inspector (current) drug therapy: Code(s): Z79.899 - Other retirement (current) drug therapy Category: Medical Plan: See above. Orders: Orders Aspartate Amino Transferase 1 Month Z79.899 - Other watermelon inspector (current) drug therapy Complete Blood Count Auto Diff 1 Month Z79.899 - Other watermelon inspector (current) drug therapy Alanine Aminotransferase 1 Month Z79.899 - Other watermelon inspector (current) drug therapy Creatinine 1 Month Z79.899 - Other watermelon inspector (current) drug therapy Medications: New dapsone 100 mg PO DAILY 90 tabs 4RF Coding Level of Care Code Est Pt Level 3 (03030) Complex EM visit Add On G2211 Diagnoses Systemic lupus erythematosus M32.9 Chronic back pain M54.9; G89.29 Other retirement (current) drug therapy Z79.899 CPT Codes Coding - 95463 - Small joint: 20411 - Small Joint ([id number])
[2025-06-11 13:37] VITALS: BMI 24.8
== END 2025-06-11 13:55 | disposition home or self-care (01) ==
LOC: HO.RHES 13:21
PROVIDERS: PCP Internal Medicine; Visit Provider Internal Medicine Rheumatology
DX: M32.9 Systemic lupus erythematosus, unspecified (principal); M54.9 Dorsalgia, unspecified; G89.29 Other chronic pain; Z79.899 Other long term (current) drug therapy
CPT/HCPCS: 20600; 99213

== ENCOUNTER 2025-06-12 16:13 | Outpatient (REF) | payer OTHER, SELFPAY ==
[2025-06-12 16:29] LABS: MANUAL DIFF FLAG NO
[2025-06-12 17:16] LABS: Hematocrit 42.0 % (37.0-47.0); Hemoglobin 14.1 g/dl (12.0-16.0); Imm Gran Abs Auto 0.03 X10*3/uL (0.00-0.03); Imm Gran Pct Auto 0.4 % (0.0-0.4); Lymphocytes Absolute Auto 1.9 X10*3/uL (1.2-4.9); Mean Corpuscular HGB Conc 33.6 g/dl (31.0-35.0); Mean Corpuscular Hemoglobin 29.0 pg (27.0-33.0); Mean Corpuscular Volume 86.2 fL (80.0-98.0); NRBC Abs Auto 0.000 X10*3/uL (0.0-0.012); NRBC Pct Auto 0.0 /100WBC (0.0-0.2); Platelet Count 328 X10*3/uL (160-400); Red Blood Count 4.87 X10*6/uL (4.20-5.50); White Blood Count 8.4 X10*3/uL (4.8-10.8)
[2025-06-12 17:22] LABS: Appearance Urine Hazy; Glucose Urine UA Negative (Negative); PH 6.0 (5.0-9.0); Specific Gravity - Urine >= 1.030 (1.005-1.025); UMIC TRIGGER UACC YES
[2025-06-12 17:48] LABS: UACC Culture Trigger YES
[2025-06-12 17:53] LABS: Protein/Creatinine Ratio, Ur 0.53 (<0.2); Total Protein Urine Random 167 mg/dL (<12)
[2025-06-12 17:54] LABS: Alanine Aminotransferase 14 U/L (0-31); Aspartate Amino Transferase 22 U/L (5-31); Estimated Glomerular Filt Rate > 60
--- OUTSIDE RECORDS SUMMARY | 2025-06-12 19:00 | XMS_ITS | Clinical Summary ---
Author Organization [facility] Address [address] [place] [address] Phone Care Team Providers Care Oil And Gas Exploration Technician Name Role Phone Gurdeep Martinez MD Primary Care Provider + [phone] Allergies Active Allergy Reactions Criticality Noted Date [...] History of SARS-CoV-2 08/12/2020 Overview (03/03/2022): 07/28/21 [facility] Bilateral plantar wart 04/15/2020 [...] patient's age to complete this topic Insurance [facility] Care Teams Oil And Gas Exploration Technician Relationship Specialty Start Date End Date Gurdeep Martinez MD PCP - General 08/11/20
== END 2025-06-12 16:14 | disposition home or self-care (01) ==
LOC: HO.LAB 16:13
PROVIDERS: PCP Internal Medicine; Visit Provider Internal Medicine Rheumatology
DX: M32.9 Systemic lupus erythematosus, unspecified (principal); Z79.60 Long term (current) use of unspecified immunomodulators and immunosuppressants
CPT/HCPCS: 36415; 81001; 82565; 82570; 84156; 84450; 84460; 85025; 85652; 86140; 86160; 86225; 87086

== ENCOUNTER 2025-06-25 13:04 | Emergency (ER) | payer OTHER, SELFPAY ==
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
[2025-06-25 13:23] VITALS: BP 130/94; PULSE 100
[2025-06-25 13:31] VITALS: BP 129/67; PULSE 91; RESP 18; TEMP 36.8; O2SAT 99; BMI 23.9
[2025-06-25 14:17] VITALS: BP 121/64; PULSE 87; RESP 16; TEMP 36.8; O2SAT 100
[2025-06-25 15:11] VITALS: BP 121/64; PULSE 87; RESP 16; TEMP 36.8; O2SAT 100
--- OUTSIDE RECORDS SUMMARY | 2025-06-25 18:00 | XMS_ITS | Clinical Summary ---
Author Organization [facility] Address [address] [place] [address] Phone Care Team Providers Care Parole Agent Name Role Phone Gurdeep Martinez MD Primary Care Provider + [phone] Allergies Active Allergy Reactions Criticality Noted Date [...] History of SARS-CoV-2 08/12/2020 Overview (03/03/2022): 07/28/21 [facility] Bilateral plantar wart 04/15/2020 [...] patient's age to complete this topic Insurance [facility] Care Teams Parole Agent Relationship Specialty Start Date End Date Gurdeep Martinez MD PCP - General 08/11/20
== END 2025-06-25 15:12 | disposition home or self-care (01) ==
PROVIDERS: Emergency Provider Emergency Medicine; PCP Internal Medicine
DX: S13.4XXA Sprain of ligaments of cervical spine, initial encounter (principal); V53.6XXA Passenger in pick-up truck or van injured in collision with car, pick-up truck or van in traffic accident, initial encounter; Y93.9 Activity, unspecified; Y92.410 Unspecified street and highway as the place of occurrence of the external cause; Y99.0 Civilian activity done for income or pay; M54.2 Cervicalgia; R20.2 Paresthesia of skin
CPT/HCPCS: 71046; 72125; 99283; 99284

== ENCOUNTER → 2025-06-25 13:31 | Outpatient (BNV) | payer OTHER, SELFPAY | PROVIDERS: Emergency Provider Emergency Medicine; PCP Internal Medicine; Visit Provider Radiology Diagnostic Radiology | DX: M54.2 Cervicalgia (principal); R20.2 Paresthesia of skin; R07.9 Chest pain, unspecified; V89.2XXA Person injured in unspecified motor-vehicle accident, traffic, initial encounter | CPT/HCPCS: 71046; 72125 ==